=== PATIENT | female | born 1955 | race Caucasian/White ===

== ENCOUNTER 2024-06-08 13:55 | Outpatient (CLI) | payer MEDICARE, OTHER, SELFPAY ==
[2024-06-08 14:24] LABS: Basophils Percent Auto 0.3 % (0.2-1.2); Eosinophils Absolute Auto 0.1 K/mm3 (0-0.3); Eosinophils Percent Auto 1.5 % (0-4.4); Hematocrit 30.2 % (37.0-47.0); Hemoglobin 9.5 g/dL (12.0-15.0); Immature Granulocyte Absolute 0.03 K/mm3 (0.00-0.031); Immature Granulocyte Percent A 0.3 % (0-0.5); Lymphocytes Absolute Auto 2.12 K/mm3 (0.9-3.2); Lymphocytes Percent Auto 22.4 % (18.3-44.2); Mean Corpuscular HGB Conc 31.5 g/dl (32-36); Mean Corpuscular Hemoglobin 25.9 pg (26-34); Mean Corpuscular Volume 82.3 fl (80-100); Mean Platelet Volume 9.6 fl (7.4-10.4); Monocytes Absolute Auto 0.8 K/mm3 (0.1-0.6); Neutrophils Absolute Auto 6.4 K/mm3 (1.3-6.7); Neutrophils Percent Auto 67.5 % (45.5-73.1); Platelet Count Result 289 k/mm3 (150-375); Red Blood Count 3.67 M/mm3 (4.2-5.4); Red Cell Distribution Width 14.8 % (11.5-14.5); White Blood Count 9.5 K/mm3 (4.5-10.0)
[2024-06-08 16:34] LABS: Alanine Aminotransferase 28 U/L (6-35); Albumin Level 3.9 g/dL (3.5-5.1); Alkaline Phosphatase 121 U/L (38-126); Anion Gap 9 mmol/L (4-12); Aspartate Amino Transferase 40 U/L (14-36); Bilirubin,Total 0.3 mg/dL (0.2-1.3); Blood Urea Nitrogen 26 mg/dL (7-17); Carbon Dioxide 29 mmol/L (22-30); Chloride 94 mmol/L (98-107); Estimated Glomerular Filt Rate 30; Glucose 98 mg/dL (65-110); Phosphorus 4.9 mg/dL (2.5-4.5); Potassium 4.1 mmol/L (3.4-5.0); Sodium 132 mmol/L (137-145)
[2024-06-08 16:34] LABS: Iron 31 ug/dL (37-170)
[2024-06-08 16:44] LABS: Percent Iron Saturation 12 % (20-50)
[2024-06-08 16:52] LABS: Free T4 Free Thyroxine 1.41 ng/mL (0.78-2.19)
[2024-06-09 12:08] LABS: Triiodothyronine T3 Free 2.2 pg/mL (2.3-4.2)
== END 2024-06-08 13:56 | disposition home or self-care (01) ==
LOC: ANHLAB 14:07
PROVIDERS: Visit Provider Internal Medicine Hematology & Oncology
DX: C78.00 Secondary malignant neoplasm of unspecified lung (principal); E03.9 Hypothyroidism, unspecified
CPT/HCPCS: 36415; 80053; 82607; 82728; 83540; 83550; 84100; 84439; 84443; 84481; 85025